=== PATIENT | male | born 1995 | race Asian ===

== ENCOUNTER 2019-01-30 22:36 | Emergency (ER) | payer OTHER ==
[~2019-01-30] VITALS: Ht 180.3 cm; Wt 86.2 kg
[2019-01-30 22:42] VITALS: BP 125/79
--- NOTE | 2019-01-30 22:46 | NUR ---
TO LOBBY A/W BED, XRAY , AMB, VSS ERMD NOTED
--- NOTE | 2019-01-31 01:08 | NUR ---
PT AMBULATED TO BED 2. Addendum: 01/31/19 at 0109 by [facility] BED 3.
--- NOTE | 2019-01-31 01:10 | NUR ---
23/M PRESENTS TO ED, C/O R GREAT TOE PAIN, S/P ACCIDENTALLY DROPPING A METAL PIECE OF A FRYER AT WORK INTO HIS TOE 4 HRS AGO. R GREAT TOE WITH SUPERFICIAL ABRASION, ECCHYMOSIS AND MILD SWELLING, +CMS. AOX4, RR EVEN AND UNLABORED. HX ANEMIA
--- NOTE | 2019-01-31 01:30 | NUR ---
PT REFUSED TORADOL IM DESPITE EDUCATION, ER MD MADE AWARE.
[2019-01-31] MEDS: KETOROLAC 60 MG/2 ML VIAL IM ONE ×2 (01:31→01:33)
[2019-01-31 01:51] VITALS: BP 123/64
== END 2019-01-31 01:49 | disposition home or self-care (01) ==
LOC: MED 22:36
DX: S90.111A Contusion of right great toe without damage to nail, initial encounter (principal); S90.411A Abrasion, right great toe, initial encounter; W20.8XXA Other cause of strike by thrown, projected or falling object, initial encounter; Y93.89 Activity, other specified; Y92.89 Other specified places as the place of occurrence of the external cause; Y99.8 Other external cause status
CPT/HCPCS: 73660; 99283; J1885